=== PATIENT | female | born 1955 | race Caucasian/White ===

== ENCOUNTER → 2016-12-15 | Outpatient (CLI) | payer OTHER ==
[~2016-12-15] MED LIST: ASPIRIN EC81 MG; BENICAR HCT 201 EACH PO; CALCIUM 600 +1 EAC6 PO; FISH OIL1000 MG PO; JENTADUETO 2.51 EACH PO; LANTUS100 UNIT/1 SUB-Q; LIPITOR20 M1 PO; RYTHMOL150 M1 PO; TRICOR 145 MG145 MG PO; XARELTO20 MG PO
== END | disposition disaster alternative care site (69) ==
LOC: GBCOE 09:26
DX: Z12.31 Encounter for screening mammogram for malignant neoplasm of breast (principal)
CPT/HCPCS: G0202